=== PATIENT | female | born 1985 | race Caucasian/White ===

== ENCOUNTER 2017-09-25 11:11 | Emergency (ER) | payer OTHER ==
[~2017-09-25] VITALS: Ht 144.8 cm; Wt 47.2 kg
[~2017-09-25 11:11] MED LIST: AMOXICILLIN 50500 MG PO; ANAPROX DS550 MG PO; AUGMENTIN 875875 MG PO; BACTRIM DS TAB1 EACH PO; BLEPH-105 ML OPHTHALMIC; CIPROFLOXACIN500 M1 PO; CORTIZONE-1028 GM TP; DEPO-PROVE150 MG/1 M; DICLOFENAC SODI75 MG PO; DIFLUCAN150 MG PO; DIFLUCAN200 MG PO; EXCEDRIN CAPLE1 EACH PO; FLINTSTONES GU1 EACH; FLINTSTONES GU1 EACH PO; HYDROCODON-ACE1 EAC7 PO; IBUPROFEN 200200 M1 PO; IBUPROFEN 600600 M1 PO; KEFLEX500 MG PO; MACROBID 100 M100 M1 PO; MOBIC15 MG PO; MUCINEX TA600 MG/TA2 PO; NOHOMEMEDICATIONS; NORCO 5-325 TA1 EACH PO; PENICILLIN V P500 MG PO; PENICILLIN VK500 MG PO; PRENATAL PO; PYRIDIUM100 MG PO; REMERON15 MG PO; SUDAFED 12 HOU120 MG PO; TRAMADOL 50 MG50 MG PO; ULTRAM 50MG TAB50 MG PO; VITAFOL-OB+DHA1 EACH PO; XANAX1 MG PO; ZANAFLEX4 MG PO; ZOFRAN ODT4 MG PO
[2017-09-25] MEDS ORDERED: ULTRAM 50MG TAB50 MG PO (12:55)
[2017-09-25] MEDS ORDERED: IBUPROFEN 600600 M1 PO (12:55)
[2018-04-17] MEDS ORDERED: CYCLOBENZAPRINE5 MG PO (15:55)
[2018-04-17] MEDS ORDERED: BUTALB-APAP-CA1 EACH PO (18:14)
[2018-04-17] MEDS ORDERED: NORCO 5-325 TA1 EACH PO (18:14)
[2018-04-17] MEDS ORDERED: PRILOSEC 20 MG20 MG PO (18:14)
[2018-04-17] MEDS ORDERED: CARAFATE 1 GM TA1 G1 PO (18:14)
[2018-04-17] MEDS ORDERED: DIFLUCAN200 MG PO (18:19)
[2018-04-17] MEDS ORDERED: KEFLEX500 M1 PO (18:19)
== END 2017-09-25 13:27 | disposition home or self-care (01) ==
LOC: ER 11:11
DX: M79.671 Pain in right foot (principal); F41.9 Anxiety disorder, unspecified; F17.210 Nicotine dependence, cigarettes, uncomplicated; Z98.890 Other specified postprocedural states

== ENCOUNTER 2018-05-05 15:04 | Emergency (ER) | payer OTHER ==
[~2018-05-05] VITALS: Ht 144.8 cm; Wt 51.7 kg
[~2018-05-05 15:04] MED LIST changes: +BUTALB-APAP-CA1 EACH PO; +CARAFATE 1 GM TA1 G1 PO; +CYCLOBENZAPRINE5 MG PO; +KEFLEX500 M1 PO; +PRILOSEC 20 MG20 MG PO
[2018-05-05 15:41] VITALS: BP 126/75
[2018-05-05] MEDS ORDERED: PRILOSEC 20 MG20 MG PO (16:11)
[2018-05-05] MEDS ORDERED: CARAFATE 1 GM TA1 G1 PO (16:11)
[2018-05-05] MEDS ORDERED: LEVSIN0.125 MG PO (16:11)
== END 2018-05-05 16:40 | disposition home or self-care (01) ==
LOC: ER 15:04
DX: Z76.0 Encounter for issue of repeat prescription (principal); K21.9 Gastro-esophageal reflux disease without esophagitis; R10.13 Epigastric pain; F17.210 Nicotine dependence, cigarettes, uncomplicated; F41.9 Anxiety disorder, unspecified; Z98.890 Other specified postprocedural states; Z85.41 Personal history of malignant neoplasm of cervix uteri

== ENCOUNTER 2018-06-03 16:01 | Emergency (ER) | payer OTHER ==
[~2018-06-03] VITALS: Ht 144.8 cm; Wt 49.4 kg
[~2018-06-03 16:01] MED LIST changes: +LEVSIN0.125 MG PO
[2018-06-03] MEDS ORDERED: MEDROLDOSEPACK PO (17:23)
[2018-06-03] MEDS ORDERED: PROMETHAZINE-D118 ML PO (17:23)
[2018-06-03] MEDS ORDERED: DOXYCYCLINE 10100 MG PO (17:23)
[2018-06-03 17:26] VITALS: BP 110/73
== END 2018-06-03 18:17 | disposition home or self-care (01) ==
LOC: ER 16:01
DX: J18.9 Pneumonia, unspecified organism (principal); F17.210 Nicotine dependence, cigarettes, uncomplicated; F41.9 Anxiety disorder, unspecified; Z85.41 Personal history of malignant neoplasm of cervix uteri; Z98.890 Other specified postprocedural states

== ENCOUNTER 2018-08-03 21:37 | Emergency (ER) | payer OTHER ==
[~2018-08-03] VITALS: Ht 144.8 cm; Wt 51.7 kg
[~2018-08-03 21:37] MED LIST changes: +DOXYCYCLINE 10100 MG PO; +MEDROLDOSEPACK PO; +PROMETHAZINE-D118 ML PO
[2018-08-03] MEDS ORDERED: VALIUM5 MG PO (22:23)
[2018-08-03] MEDS ORDERED: MOBIC15 MG PO (22:23)
[2018-08-03] MEDS ORDERED: ULTRAM 50MG TAB50 MG PO (22:23)
[2018-08-03 22:47] VITALS: BP 100/74
== END 2018-08-03 22:48 | disposition home or self-care (01) ==
LOC: ER 21:37
DX: M54.5 Low back pain (principal); G89.29 Other chronic pain; F17.210 Nicotine dependence, cigarettes, uncomplicated; F41.9 Anxiety disorder, unspecified; Z98.890 Other specified postprocedural states; Z85.41 Personal history of malignant neoplasm of cervix uteri; W01.0XXA Fall on same level from slipping, tripping and stumbling without subsequent striking against object, initial encounter; Y92.89 Other specified places as the place of occurrence of the external cause; Y93.E5 Activity, floor mopping and cleaning; Y99.8 Other external cause status

== ENCOUNTER 2019-04-05 18:34 | Emergency (ER) | payer OTHER ==
[~2019-04-05] VITALS: Ht 157.5 cm; Wt 49.9 kg
[~2019-04-05 18:34] MED LIST changes: +VALIUM5 MG PO
[2019-04-05 18:37] VITALS: BP 122/84
[2019-04-05] MEDS ORDERED: ALPRAZOLAM ER1 MG PO (19:25)
== END 2019-04-05 19:54 | disposition home or self-care (01) ==
LOC: ER 18:34
DX: F41.9 Anxiety disorder, unspecified (principal); Z76.0 Encounter for issue of repeat prescription; G89.29 Other chronic pain; M54.9 Dorsalgia, unspecified; F17.210 Nicotine dependence, cigarettes, uncomplicated; Z98.890 Other specified postprocedural states; Z85.41 Personal history of malignant neoplasm of cervix uteri

== ENCOUNTER 2019-09-17 14:05 | Emergency (ER) | payer OTHER ==
[~2019-09-17] VITALS: Ht 144.8 cm; Wt 47.2 kg
[~2019-09-17 14:05] MED LIST changes: +ALPRAZOLAM ER1 MG PO
[2019-09-17] MEDS ORDERED: PANTOPRAZOLE SO40 M1 PO (14:11)
[2019-09-17] MEDS ORDERED: XANAX 0.5 MG0.5 M1 PO (14:27)
[2019-09-17 14:41] VITALS: BP 104/71
== END 2019-09-17 14:41 | disposition home or self-care (01) ==
LOC: ER 14:05
DX: F41.9 Anxiety disorder, unspecified (principal); Z76.0 Encounter for issue of repeat prescription; G89.29 Other chronic pain; M54.9 Dorsalgia, unspecified; F17.210 Nicotine dependence, cigarettes, uncomplicated; Z85.51 Personal history of malignant neoplasm of bladder; Z85.41 Personal history of malignant neoplasm of cervix uteri; Z98.890 Other specified postprocedural states

== ENCOUNTER 2019-11-06 10:51 | Emergency (ER) | payer OTHER ==
[~2019-11-06] VITALS: Ht 144.8 cm; Wt 47.6 kg
--- NOTE | ~2019-11-06 | EMS ---
[address] [address] EMS Patient Care Report Name: JERSON COOK Room #: DEP KARI Kenny#: [id number] Admission: 11/06/19 Attend Phys: Discharge: 11/06/19 Date of : [birth year] Report #: [id number] THIS REPORT FOR: //name// Report Transmitted: 11/06/2019 10:12 EMS Care Summary [place], [place]/[facility] Incident [id number] @ 11/06/2019 10:29 Incident Location [id number] [place] [address] Patient JERSON COOK Female, 34 Years 1985 Patient Address [id number] [place] [address] Patient History Anxiety, Patient Allergies No known allergies, Patient Medications Alprazolam, Chief Complaint Out of meds/anxious Disposition Transported No Lights/[place] Dispatch Reason Sick Person Transported To [facility] Narrative Arrived on the scene, with [id number], for a 34 y/o female that is walking out of her front door to the ambulance as we arrived. [place] fire stated that the Pt is out of her anxiety meds for 2 days and wants to go to the hospital. Pt said that she feels anxious and out of meds and needs them replaced. [address] [address] EMS Patient Care Report Name: JERSON COOK Room #: DEP [facility]#: [id number] Admission: 11/06/19 Attend Phys: Discharge: 11/06/19 Date of : [birth year] Report #: [id number] See Pt Assessment Anxiety/Out of medications See Flow Chart. Pt got on the cot herself. Transported non--emergent with zero change or incidents. Pt walked into the hospital. Transferred care to receiving facility. Initial Vitals @10:36P: 98,R: 16,BP: 133/91,Pain: 0/10,GCS: 15,Revised Trauma: 12, @10:45P: 85,R: 16,BP: 116/79,Pain: 0/10,GCS: 15,Revised Trauma: 12, Assessments @10:35MENTAL:Person Oriented,Time Oriented,Place Oriented,Event Oriented,SKIN:HEENT:Head/Face: No Abnormalities,Eyes: No Abnormalities,Neck/Airway: No Abnormalities,LUNG SOUNDS:General: No Abnormalities,Left Upper: No Abnormalities,Right Upper: No Abnormalities,Left Lower: No Abnormalities,Right Lower: No Abnormalities,ABDOMEN:General: No Abnormalities,Left Upper: No Abnormalities,Right Upper: No Abnormalities,Left Lower: No Abnormalities,Right Lower: No Abnormalities,PELVIS//GI:No Abnormalities,EXTREMITIES:Left Arm: No Abnormalities,Right Arm: No Abnormalities,Left Leg: No Abnormalities,Right Leg: No Abnormalities,PULSE:Radial: 2+ Normal,NEURO:No Abnormalities, Impression Anxiety reaction/Emotional upset Procedures @10:35ALS AssessmentResponse: Unchanged Timeline 10:27,Call Received 10:27,Dispatch Notified 10:29,Dispatched 10:30,En Route 10:34,On Scene 10:35,At Patient 10:35,ALS Assessment,Response: Unchanged 10:36,Depart Scene 10:36,BP: 133/91 M,PULSE: 98,RR: 16 R,SPO2: Ox,ETCO2: ,BG: ,PAIN: 0,GCS: 15, 10:45,BP: 116/79 M,PULSE: 85,RR: 16 R,SPO2: Ox,ETCO2: ,BG: ,PAIN: 0,GCS: 15, 10:48,At Destination 10:55,Call Closed Disclaimer [facility] [address] [address] EMS Patient Care Report Name: JERSON COOK Room #: DEP [facility]#: [id number] Admission: 11/06/19 Attend Phys: Discharge: 11/06/19 Date of : [birth year] Report #: [id number] v1.1 Copyright 2020 [employer] This EMS Care Summary contains data elements from the applicable legal record (which may be displayed differently). It is designed to provide pertinent information for the following purposes: continuity of care, clinical quality, and state data reporting. The complete legal record is available to ED staff and administrators of the receiving hospital in [employer] Patient Tracker. All data is provided "as is."
[~2019-11-06 10:51] MED LIST changes: +PANTOPRAZOLE SO40 M1 PO; +XANAX 0.5 MG0.5 M1 PO
[2019-11-06] MEDS ORDERED: ATIVAN0.5 M1 PO (11:04)
[2019-11-06] MEDS ORDERED: HYDROCODON-ACE1 EAC7 PO (11:07)
[2019-11-06] MEDS ORDERED: ZANAFLEX4 M2 PO (11:08)
[2019-11-06] MEDS ORDERED: ATIVAN1 M1 PO (11:13)
[2019-11-06] MEDS ORDERED: XANAX1 MG PO (11:26)
[2019-11-06 11:33] VITALS: BP 127/85
== END 2019-11-06 11:35 | disposition home or self-care (01) ==
LOC: ER 10:51
DX: F41.9 Anxiety disorder, unspecified (principal); Z76.0 Encounter for issue of repeat prescription; G89.29 Other chronic pain; F17.210 Nicotine dependence, cigarettes, uncomplicated; Z85.41 Personal history of malignant neoplasm of cervix uteri; Z98.890 Other specified postprocedural states